=== PATIENT | male | born 1970 | race Caucasian/White ===

== ENCOUNTER 2017-09-12 02:58 | Emergency (ER) | payer OTHER ==
[2017-09-12] MEDS ORDERED: LISI-374 PO (03:03)
[2017-09-12] MEDS ORDERED: ASPI-1471 PO (03:03)
[2017-09-12] MEDS ORDERED: AMLO-99 PO (03:04)
[2017-09-12] MEDS ORDERED: HYDR12.561 PO (03:04)
--- NOTE | 2017-09-12 04:16 | RADIOLOGY IMAGING REPORT ---
FACILITY: [facility] [place] PATIENT NAME: Lionel Llamas : 1970 MR: [id number] V: [id number] EXAM DATE: ORDERING PHYSICIAN: BOYD MAURO TECHNOLOGIST: Location: [facility] [place] Patient: Lionel Llamas : 1970 Visit/Account:[id number] Date of Sevice: 09/12/2017 KNEE 3 VIEW RIGHT HISTORY: Anterior right knee pain from twisting injury 2 days ago. COMPARISON: None. TECHNIQUE: AP, oblique, and lateral views of the right knee. FINDINGS: There is no fracture or dislocation. No joint effusion. IMPRESSION: 1. No acute osseous abnormality of the right knee. Report Dictated By: Tashia Rosario at 09/12/2017 4:11 AM Report E-Signed By: Tashia Rosario at 09/12/2017 4:12 AM WSN:[id number]
[2017-09-12] MEDS ORDERED: TRAM-420 PO (04:47)
--- NOTE | 2017-09-12 04:49 | ER Report ---
History and Physical Time Seen By MD: 04:45 Hx. of Stated Complaint: Pt hurt knee on playground equipment playing with kids. 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 Pt reports nonstop pain in leg with swelling and bruising. HPI/ROS CHIEF COMPLAINT: Right knee swelling and pain was surrounding ecchymosis HISTORY OF PRESENT ILLNESS: Patient is a 47-year-old male here with complaints of right knee pain and surrounding edema and ecchymosis. Patient reports that 2 days ago he struck his knee on a playground equipment and developed significant swelling after the fact. Patient is reportedly on aspirin and takes ibuprofen for analgesia. Patient denies numbness or tingling. 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 Patient denies fevers, chills, shortness breath. REVIEW OF SYSTEMS: Constitutional: No fever, no chills. Eyes: No discharge. ENT: No sore throat. Cardiovascular: No chest pain, no palpitations. Respiratory: No cough, no shortness of breath. Gastrointestinal: No abdominal pain, no vomiting. Genitourinary: No hematuria. Musculoskeletal: No back pain, + right knee swelling and ecchymosis Skin: + ecchymosis of the medial knee and thigh Neurological: No headache. Allergies: Coded Allergies: No Known Drug Allergies (Unverified , 09/12/17) Home Meds Active Scripts Tramadol Hcl (TRAMADOL HCL) 50 Mg Tablet, 50 MG PO Q6H Y for PAIN, #12 TAB 0 Refills Prov:BOYD MAURO DO 09/12/17 Reported Medications Hydrochlorothiazide (HYDROCHLOROTHIAZIDE) 12.5 Mg Tablet, 1 TAB PO QDAY, TAB 09/12/17 Amlodipine Besylate (AMLODIPINE BESYLATE) 10 Mg Tablet, 1 TAB PO QDAY, TAB 09/12/17 Lisinopril (LISINOPRIL) 40 Mg Tablet, 40 MG PO QDAY, TAB 09/12/17 Aspirin (ASPIR 81) 81 Mg Tablet.dr, 81 MG PO QDAY, TAB 09/12/17 Hx Substance Use Disorder: No Hx Alcohol Use: No Constitutional Vital Sign - Last 24 Hours 09/12/17 09/12/17 09/12/17 09/12/17 02:58 03:02 03:03 03:13 Temp 98.5 Pulse ??? 53 57 Resp 20 B/P (MAP) 153/91 153/91 (111) Pulse Ox 95 95 O2 Delivery Room Air 09/12/17 09/12/17 09/12/17 09/12/17 03:15 03:28 03:30 03:43 Pulse 74 54 B/P (MAP) 165/85 (111) 134/94 (107) Pulse Ox 95 95 09/12/17 09/12/17 09/12/17 09/12/17 03:45 03:50 04:00 04:15 Pulse 59 B/P (MAP) 145/70 (95) 126/74 (91) 125/72 (89) Pulse Ox 93 09/12/17 09/12/17 09/12/17 09/12/17 04:20 04:30 04:35 04:45 Pulse 49 48 B/P (MAP) 138/84 (102) 129/80 (96) Pulse Ox 93 92 09/12/17 09/12/17 04:50 05:00 Pulse 50 B/P (MAP) 135/70 (91) Pulse Ox 93 Physical Exam General Appearance: [The patient is alert, has no immediate need for airway protection and no signs of toxicity.] [ ] [Eyes:] [Pupils equal and round no pallor or injection.] [ENT, Mouth:] [Mucous membranes are moist.] Respiratory: [There are no retractions, lungs are clear to auscultation.] Cardiovascular: [Regular rate and rhythm.] [ ] Gastrointestinal: [Abdomen is soft and non tender, no masses, bowel sounds normal.] [Neurological:] [ ] [Skin:] [Warm and dry, no rashes.] [Musculoskeletal:] [Neck is supple non tender.] [Extremities are nontender, nonswollen and have full range of motion.] [ ] [DIFFERENTIAL DIAGNOSIS: After history and physical exam differential diagnosis was considered for] [ ] Medical Decision Making EKG/Imaging Imaging Location: [facility] Patient: Lionel Llamas : 1970 Visit/Account:[id number] Date of Sevice: 09/12/2017 KNEE 3 VIEW RIGHT HISTORY: Anterior right knee pain from twisting injury 2 days ago. COMPARISON: None. TECHNIQUE: AP, oblique, and lateral views of the right knee. FINDINGS: There is no fracture or dislocation. No joint effusion. IMPRESSION: 1. No acute osseous abnormality of the right knee. ED Course/Re-evaluation ED Course Patient is a 47-year-old male here with a large hematoma of the right knee and surrounding medial thigh on aspirin and NSAIDs. Patient reportedly struck the knee 2 days ago while playing in a playground with the son and is a company tanker truck driver driving to [place]. Patient reports significant amount of pain without any distal paresthesias or neurological deficits. X-ray showed no acute fractures or dislocations. I used lidocaine with epinephrine for local anesthesia and attempted to evaluate for hemarthrosis however no fluid was able to be extracted or evacuated. Patient was advised to use an Imer wrap for compressive bandage the site and he was given analgesia for home use. Patient was to discharge. Decision to Disposition Date: Sep 12, 2017 Decision to Disposition Time: 05:00 Depart Departure Latest Vital Signs Vital Signs Date Time Temp Pulse Resp B/P (MAP) Pulse Ox O2 Delivery O2 Flow Rate FiO2 09/12/17 05:00 135/70 (91) 09/12/17 04:50 50 93 09/12/17 03:02 98.5 20 Room Air Impression: Primary Impression: Hematoma Condition: Improved Disposition: HOME OR SELF-CARE New Scripts Tramadol Hcl (TRAMADOL HCL) 50 Mg Tablet 50 MG PO Q6H Y for PAIN, #12 TAB 0 Refills Prov: BOYD MAURO DO 09/12/17 Patient Instructions: Hematoma (ED), Tramadol (By mouth) Additional Instructions: You may take 1 tramadol every 6-8 hours as needed for pain control. Please do not drive while taking tramadol as it may make you drowsy. Please wrap the knee and surrounding area in an Imer wrap or compressive bandage. Please rest, ice and elevate the knee. Please return promptly if you develop worsening swelling, pain, fevers, numbness or tingling BOYD MAURO DO Sep 12, 2017 04:49
[2017-09-12] MEDS ORDERED: oxyCODONE/ACETAMIN 5/325MG TH 2 TAB/BOTTLE PO ONE (04:50)
[2017-09-12 05:00] VITALS: BP 135/70
== END 2017-09-12 05:06 | disposition home or self-care (01) ==
LOC: ER 03:04
DX: S80.01XA Contusion of right knee, initial encounter (principal); W22.8XXA Striking against or struck by other objects, initial encounter
CPT/HCPCS: 99283